=== PATIENT | female | born 1955 | race Caucasian/White ===

== ENCOUNTER 2020-09-18 09:14 | Day surgery (SDC) | payer OTHER, BC ==
[~2020-09-18] VITALS: Ht 162.6 cm; Wt 97.5 kg
[~2020-09-18 09:14] MED LIST: AMLODIPINE BES2.5 MG; EUTHYROX75 MCG PO; LOSARTAN-HCTZ1 EAC5 PO; MELA3 PO; POTCIT10 PO
--- NOTE | 2020-09-18 09:30 | NUR ---
09/18/20 0930 Kimberly Davila TETRACINE DROP PLACED IN LEFT EYE AT 0925 PLEDGET PLACED IN LEFT EYE AT 0929 BY [facility].CB
== END 2020-09-18 11:10 | disposition home or self-care (01) ==
LOC: ORSCSDS 09:14
PROVIDERS: Ophthalmology
PROC: 08RK3JZ Replacement of Left Lens with Synthetic Substitute, Percutaneous Approach (ICD-10-PCS; principal; 2020-09-18 10:30)
DX: H25.12 Age-related nuclear cataract, left eye (principal); I10 Essential (primary) hypertension; G47.33 Obstructive sleep apnea (adult) (pediatric); E03.9 Hypothyroidism, unspecified; E66.01 Morbid (severe) obesity due to excess calories; Z68.36 Body mass index [BMI] 36.0-36.9, adult
CPT/HCPCS: J2001; J2250; J2405; J3010; J3301; J7040; V2632

== ENCOUNTER 2020-10-09 06:12 | Day surgery (SDC) | payer OTHER, BC ==
[~2020-10-09] VITALS: Ht 162.6 cm; Wt 97.4 kg
[2020-10-09] MEDS ORDERED: Amlodipine Bes2.5 MG PO (06:28)
[2020-10-09] MEDS ORDERED: LOSARTAN-HCTZ1 EACH PO (06:30)
--- NOTE | 2020-10-09 06:34 | NUR ---
10/09/20 0634 Otf Polanco TETRACAINE APPLIED TO RIGHT EYE PER ORDERS AT 0624 PLEDGET APPLIED AND EYE TAPED AT 0667
== END 2020-10-09 08:15 | disposition home or self-care (01) ==
LOC: ORSCSDS 06:12
PROVIDERS: Ophthalmology
PROC: 08RJ3JZ Replacement of Right Lens with Synthetic Substitute, Percutaneous Approach (ICD-10-PCS; principal; 2020-10-09 07:30)
DX: H25.11 Age-related nuclear cataract, right eye (principal); I10 Essential (primary) hypertension; G47.33 Obstructive sleep apnea (adult) (pediatric); E03.9 Hypothyroidism, unspecified; E66.01 Morbid (severe) obesity due to excess calories; Z68.36 Body mass index [BMI] 36.0-36.9, adult; Z79.899 Other long term (current) drug therapy
CPT/HCPCS: J2001; J2250; J3010; J3301; V2632

== ENCOUNTER 2021-05-18 06:03 | Day surgery (SDC) | payer OTHER, MEDICARE ==
[~2021-05-18] VITALS: Ht 162.6 cm; Wt 99.8 kg
[~2021-05-18 06:03] MED LIST changes: +Amlodipine Bes2.5 MG PO; +IBUP200 PO; +KETO.5OPSO BOTHEYES; +LOSARTAN-HCTZ1 EACH PO; +OCUFLOX5 M8 BOTHEYES
--- NOTE | 2021-05-18 07:17 | NUR ---
Ambulatory in Day Surgery. History, Chart, Medications and Allergies reviewed before start of procedure.Lungs clear T/O to Auscultation. Patient confirms NPO status and agrees with scheduled surgery. Pre-Op teaching done. Pt verbalizes understanding.
--- NOTE | 2021-05-18 18:43 | NUR ---
SHIFT SUMMARY PT WAS VERY PAINFUL WHEN SPINAL BEGAN WEARING OFF, BUT PAIN MANAGEMENT IS MUCH BETTER THIS AFTERNOON. PT CONTINUES TO HAVE RESIDUAL NUMBNESS TO L BUTTOCK SO HAS NOT BEEN OOB. EATING, DRINKING, & VOIDING.
--- NOTE | 2021-05-19 03:36 | NUR ---
SHIFT SUMMARY POD1 L TKA WITH PRINEO DRESSING, CDI. PT DENIES N/T. AMBULATES WITH FWW AND GB, SBA. WALKED TO BATHROOM SEVERAL TIMES. TOLERATING IT WELL. PT REPORTS MINIMAL TO MODERATE PAIN. PAIN MANAGED WITH DILAUDID (ONCE), TORADOL(Q6 SCHEDULED) AND 2 NORCO (Q4). TOLERATING PO INTAKE. PT DENIES NAUSEA AND VOMITING. SALINE LOCKED. IV ABX ADMINISTERED VIA IV. POLAR PACK IN PLACED. JESSIE CELAYA AND SCD'S. HX ALEXANDRA WEARS CPAP AT HOME, USED 2L NC AT BED. VSS. CALL LIGHT WTIHIN REACH. PT WILL WORK WITH THERAPY TODAY TO GET CLEAR FOR DISCHARGE. WILL PROVIDE REPORT TO ONCOMING NURSE.
[2021-05-19 04:03] LABS: BASOPHILS ABSOLUTE AUTO 0.05 K/mm3 (0.00-0.23); BASOPHILS PERCENT AUTO 0 % (0-2); EOSINOPHILS PERCENT AUTO 1 % (0-6); Hemoglobin 13.2 g/dL (11.5-16.0); IMMATURE GRAN ABSOLUTE AUTO 0.04 K/mm3 (0.00-0.10); IMMATURE GRAN PERCENT AUTO 0 % (0-1); LYMPHOCYTES ABSOLUTE AUTO 2.14 K/mm3 (0.84-5.20); LYMPHOCYTES PERCENT AUTO 16 % (21-46); MONOCYTES ABSOLUTE AUTO 0.72 K/mm3 (0.16-1.47); MONOCYTES PERCENT AUTO 5 % (4-13); Mean Corpuscular HGB 28.6 pg (26.0-34.0); Mean Corpuscular HGB Conc 32.2 g/dL (31.5-36.5); Mean Corpuscular Volume 89 fL (80-100); Mean Platelet Volume 9.2 fL (9.1-12.4); NEUTROPHILS ABSOLUTE AUTO 10.65 K/mm3 (1.96-9.15); NEUTROPHILS PERCENT AUTO 77 % (41-73); Platelet Count 339 K/mm3 (150-400); RDW Coefficient Variation 13.5 % (11.7-14.2); Red Blood Cell Count 4.61 M/mm3 (3.80-5.20)
[2021-05-19 04:51] LABS: Anion Gap 7 mmol/L (6-16); Blood Urea Nitrogen 17 mg/dL (8-24); Bun/Creatinine Ratio 22.7 (12.0-20.0); CO2, Blood 29 mmol/L (21-32); Calcium, Blood 8.6 mg/dL (8.5-10.1); Chloride, Blood 105 mmol/L (98-108); Creatinine, Blood 0.75 mg/dL (0.40-1.00); Glomerular Filtration Rate >60 (60-); Glucose, Blood 118 mg/dL (70-99); Magnesium, Blood 2.2 mg/dL (1.6-2.4); Potassium, Blood 3.4 mmol/L (3.5-5.5); Sodium, Blood 141 mmol/L (136-145)
--- NOTE | 2021-05-19 09:30 | NUR ---
DIZZINESS PT REPORTS FEELING DIZZY WHILE WORKING w/ THERAPY. VS CHECK WNL (CHARTED IN THERAPY NOTES). PULSES & HRR REGULAR UPON ASSESSMENT. DECLINES ANTIEMETIC ALTHOUGH REPORTING MILD NAUSEA. MODIFIED THERAPY CONTINUED.
[2021-05-19] MEDS ORDERED: Norco 5-325 Ta1 EACH PO (11:06)
[2021-05-19] MEDS ORDERED: ASPI81CH PO (11:08)
--- NOTE | 2021-05-19 12:53 | NUR ---
05/19/21 1253 Halima Pereira VERIFICATIONS: EDIT CHART.
--- NOTE | 2021-05-19 14:45 | NUR ---
DISCHARGE PT HAS CLEARED THERAPY. PAIN REASONABLY CONTROLLED. EATING, DRINKING, & VOIDING WELL. SCRIPT & POLAR PACK SENT w/ PT. ESCORTED OUT VIA W/C.
== END 2021-05-19 15:14 | disposition home or self-care (01) ==
LOC: ORSCMMR 06:03 → SURS 06:03 → ORSCMMR 06:04 → ORD 07:30 → ORSCMMR 10:00 → SURS 10:38 → ORSCMMR 10:38 → SURS 13:36 → ORSCMMR 05-19 15:14
PROVIDERS: Orthopaedic Surgery
PROC: 0SRD0JA Replacement of Left Knee Joint with Synthetic Substitute, Uncemented, Open Approach (ICD-10-PCS; principal; 2021-05-18 07:30)
PROC: 8E0Y0CZ Robotic Assisted Procedure of Lower Extremity, Open Approach (ICD-10-PCS; principal; 2021-05-18 07:30)
DX: M17.12 Unilateral primary osteoarthritis, left knee (principal); I10 Essential (primary) hypertension; E03.9 Hypothyroidism, unspecified; G47.33 Obstructive sleep apnea (adult) (pediatric); Z87.891 Personal history of nicotine dependence; E66.01 Morbid (severe) obesity due to excess calories; Z68.37 Body mass index [BMI] 37.0-37.9, adult; Z79.899 Other long term (current) drug therapy
CPT/HCPCS: 27447; S2900; 36415; 73560-LT; 80048; 83735; 85025; 97110; 97116; 97161; 97530; A9270; C1776; J0171; J0690; J0735; J1170; J1885; J2250; J2370; J2405; J2550; J2704; J2795; J3010; J7120

== ENCOUNTER 2021-10-01 08:50 | Day surgery (SDC) | payer OTHER, MEDICARE ==
[~2021-10-01] VITALS: Ht 162.6 cm; Wt 100.6 kg
[~2021-10-01 08:50] MED LIST changes: +ASPI81CH PO; +Norco 5-325 Ta1 EACH PO
[2021-10-01] MEDS ORDERED: SPIR25 (09:38)
--- NOTE | 2021-10-01 10:39 | NUR ---
10/01/21 1039 Raul Bland FLUID DEFICIT OF 100 MLS NOTED ON [employer]. MDS NOTIFIED.
== END 2021-10-01 11:59 | disposition home or self-care (01) ==
LOC: ORSCSDS 08:50
PROVIDERS: Obstetrics & Gynecology
PROC: 0UDB7ZX Extraction of Endometrium, Via Natural or Artificial Opening, Diagnostic (ICD-10-PCS; principal; 2021-10-01 10:00)
PROC: 0UJD8ZZ Inspection of Uterus and Cervix, Via Natural or Artificial Opening Endoscopic (ICD-10-PCS; principal; 2021-10-01 10:00)
DX: N85.00 Endometrial hyperplasia, unspecified (principal); N84.0 Polyp of corpus uteri; D25.9 Leiomyoma of uterus, unspecified; E03.9 Hypothyroidism, unspecified; I10 Essential (primary) hypertension; G47.33 Obstructive sleep apnea (adult) (pediatric); E66.9 Obesity, unspecified; Z68.37 Body mass index [BMI] 37.0-37.9, adult; Z79.899 Other long term (current) drug therapy
CPT/HCPCS: 88305; A9270; J1100; J1885; J2250; J2405; J2704; J3010; J7120

== ENCOUNTER 2023-11-20 10:15 | Emergency (ER) | payer BC, MEDICARE ==
[~2023-11-20] VITALS: Ht 162.6 cm; Wt 113.4 kg
[~2023-11-20 10:15] MED LIST changes: +SPIR25
[2023-11-20] MEDS ORDERED: AMLODIPINE BESY10 MG PO (10:53)
[2023-11-20] MEDS ORDERED: TELMISARTAN80 MG PO (10:53)
[2023-11-20] MEDS ORDERED: TRIAMTERENE50 MG PO (10:54)
[2023-11-20] MEDS ORDERED: NS 1,000 ML IV SCH (11:15)
[2023-11-20] MEDS ORDERED: Metoclopramide HCl 5MG / ML 2ML Vial IV ONE (11:15)
[2023-11-20] MEDS ORDERED: Ketorolac Tromethamine 30mg Vial IV ONE (11:15)
[2023-11-20 11:23] LABS: BASOPHILS ABSOLUTE AUTO 0.07 K/mm3 (0.00-0.23); BASOPHILS PERCENT AUTO 1 % (0-2); EOSINOPHILS ABSOLUTE AUTO 0.16 K/mm3 (0.00-0.68); EOSINOPHILS PERCENT AUTO 2 % (0-6); Hemoglobin 14.5 g/dL (11.5-16.0); IMMATURE GRAN ABSOLUTE AUTO 0.02 K/mm3 (0.00-0.10); IMMATURE GRAN PERCENT AUTO 0 % (0-1); LYMPHOCYTES ABSOLUTE AUTO 2.45 K/mm3 (0.84-5.20); LYMPHOCYTES PERCENT AUTO 26 % (21-46); MONOCYTES ABSOLUTE AUTO 0.52 K/mm3 (0.16-1.47); MONOCYTES PERCENT AUTO 6 % (4-13); Mean Corpuscular HGB 28.7 pg (26.0-34.0); Mean Corpuscular HGB Conc 32.2 g/dL (31.5-36.5); Mean Corpuscular Volume 89 fL (80-100); NEUTROPHILS ABSOLUTE AUTO 6.21 K/mm3 (1.96-9.15); NEUTROPHILS PERCENT AUTO 66 % (41-73); Platelet Count 346 K/mm3 (150-400); RDW Coefficient Variation 12.9 % (11.7-14.2); RDW Standard Deviation 42.2 fL (35.1-46.3); Red Blood Cell Count 5.06 M/mm3 (3.80-5.20); White Blood Cell Count 9.43 K/mm3 (4.00-11.30)
[2023-11-20 11:48] LABS: Albumin/Globulin Ratio 1.1 (0.8-1.8); Bilirubin, Total 0.4 mg/dL (0.1-1.0); Bun/Creatinine Ratio 19.2 (12.0-20.0); Calcium, Blood 9.4 mg/dL (8.5-10.1); Creatinine, Blood 0.73 mg/dL (0.40-1.00); Globulin, Blood 3.8 g/dL (2.2-4.0); Potassium, Blood 3.8 mmol/L (3.5-5.5); Total Protein, Blood 7.8 g/dL (6.4-8.2)
[2023-11-20 12:00] VITALS: BP 140/63
[2023-11-20 12:04] LABS: Influenza A, PCR NEGATIVE (NEGATIVE); Influenza B, PCR NEGATIVE (NEGATIVE); Resp Syncytial Virus, PCR NEGATIVE (NEGATIVE); SARS-Cov-2 (COVID-19) PCR, MMC NEGATIVE (NEGATIVE)
[2023-11-20] MEDS ORDERED: ONDA4ODT MM (12:54)
== END 2023-11-20 13:07 | disposition home or self-care (01) ==
LOC: ER 10:15
PROVIDERS: Physician Assistant; Student in an Organized Health Care Education/Training Program
DX: B34.9 Viral infection, unspecified (principal); I10 Essential (primary) hypertension; R51.9 Headache, unspecified; R11.0 Nausea; E03.9 Hypothyroidism, unspecified; Z87.891 Personal history of nicotine dependence; Z79.899 Other long term (current) drug therapy; Z88.0 Allergy status to penicillin; Z91.018 Allergy to other foods; Z88.8 Allergy status to other drugs, medicaments and biological substances
CPT/HCPCS: 0241U; 71046; 80053; 83735; 84443; 84484; 85025; 93005; 93010; 96361; 96374; 96375; 99283-25; J1885; J2765; J7030